=== PATIENT | female | born 1985 | race African-American/Black ===

== ENCOUNTER 2018-08-11 18:56 | Emergency (ER) | payer OTHER ==
[~2018-08-11] VITALS: Ht 160 cm; Wt 63.0 kg
[2018-08-11] MEDS ORDERED: KETOROLAC 30MG/ML VIAL IV STA (23:58)
[2018-08-12 00:32] LABS: BASOPHILS % 0.4 % (0.0-2.0); EOSINOPHILS % 3.1 % (0.0-5.0); HEMOGLOBIN. 12.9 g/dL (12.0-16.0); MEAN CORPUSCULAR VOLUME 84.2 fL (81.0-99.0); MEAN PLATELET VOLUME 8.6 fl (7.4-10.4); MONOCYTES % 8.2 % (2.0-8.0); NEUTROPHILS % 60.3 % (40.0-76.0); PLATELET 226 x1000/uL (130-400); RED BLOOD CELL COUNT 4.63 mill/uL (4.2-5.4); RED CELL DISTRIBUTION WIDTH 14.1 % (11.6-14.6)
[2018-08-12 00:34] LABS: CHLORIDE 107 mEq/L (98-107)
[2018-08-12 03:49] VITALS: BP 129/58
== END 2018-08-12 03:58 | disposition home or self-care (01) ==
LOC: ER 20:19
DX: M94.0 Chondrocostal junction syndrome [Tietze] (principal)
CPT/HCPCS: 36415; 71045; 80048; 81025; 84484; 85025; 85379; 93005; 96374; 99284; J1885

== ENCOUNTER 2019-06-23 14:51 | Emergency (ER) | payer SELFPAY ==
[~2019-06-23] VITALS: Ht 154.9 cm; Wt 60.0 kg
[2019-06-23] MEDS ORDERED: KETOROLAC 30MG/ML VIAL IM ONE (16:45)
[2019-06-23 17:19] VITALS: BP 129/81
== END 2019-06-23 17:19 | disposition home or self-care (01) ==
LOC: ER 14:51
DX: R51 Headache (principal); S29.012A Strain of muscle and tendon of back wall of thorax, initial encounter; V49.49XA Driver injured in collision with other motor vehicles in traffic accident, initial encounter; Y93.89 Activity, other specified; Y92.02 Mobile home as the place of occurrence of the external cause
CPT/HCPCS: 81025; 96372; 99283; J1885